=== PATIENT | female | born 1990 | race Caucasian/White ===

== ENCOUNTER 2017-06-29 19:29 | Emergency (ER) | payer OTHER ==
[~2017-06-29] VITALS: Ht 175.3 cm; Wt 74.4 kg
[2017-06-29 19:34] VITALS: BP 132/87
--- NOTE | 2017-06-29 20:32 | NUR ---
RICHA DE LA CRUZ AT BEDSIDE FOR EVAL
[2017-06-29] MEDS ORDERED: IBUPROFEN 600 MG TABLET PO ONE ×2 (20:37→21:00)
== END 2017-06-29 20:52 | disposition home or self-care (01) ==
LOC: ER 19:29
DX: H92.01 Otalgia, right ear (principal)
CPT/HCPCS: A4606; Z7502; Z7610